=== PATIENT | female | born 1930 | race Caucasian/White ===

== ENCOUNTER → 2016-06-10 | Outpatient (CLI) | payer MEDICARE, OTHER | END | disposition disaster alternative care site (69) | LOC: GAMB 16:03 | DX: R53.1 Weakness (principal); I10 Essential (primary) hypertension; Z79.52 Long term (current) use of systemic steroids; Z79.899 Other long term (current) drug therapy; Z88.0 Allergy status to penicillin | CPT/HCPCS: A0422; A0425; A0427; J7030 ==

== ENCOUNTER → 2016-06-16 | Outpatient (CLI) | payer MEDICARE, OTHER | END | disposition disaster alternative care site (69) | LOC: GRAD 12:00 | DX: S09.90XA Unspecified injury of head, initial encounter (principal); G31.9 Degenerative disease of nervous system, unspecified; X58.XXXA Exposure to other specified factors, initial encounter ==

== ENCOUNTER → 2016-06-27 | Outpatient (CLI) | payer MEDICARE, OTHER | END | disposition disaster alternative care site (69) | LOC: GAMB 11:42 | DX: R53.1 Weakness (principal); I10 Essential (primary) hypertension; R06.02 Shortness of breath; R11.2 Nausea with vomiting, unspecified; Z79.52 Long term (current) use of systemic steroids; Z79.899 Other long term (current) drug therapy; Z88.0 Allergy status to penicillin | CPT/HCPCS: A0422; A0425; A0427; J2405; J7030 ==

== ENCOUNTER → 2016-07-29 | Emergency (ER) | payer MEDICARE, OTHER | END | disposition disaster alternative care site (69) | LOC: GAMB 10:57 | DX: R53.1 Weakness (principal); I10 Essential (primary) hypertension; Z79.891 Long term (current) use of opiate analgesic; Z79.52 Long term (current) use of systemic steroids; Z79.899 Other long term (current) drug therapy; Z88.0 Allergy status to penicillin ==